=== PATIENT | male | born 1995 | race African-American/Black ===

== ENCOUNTER 2017-05-11 19:22 | Emergency (ER) | payer MEDICAID ==
[~2017-05-11] VITALS: Ht 170.2 cm; Wt 65.3 kg
[2017-05-11 19:32] VITALS: BP 137/73
[2017-05-12] MEDS ORDERED: CYCLOBENZAPRINE HCL 10 MG TAB PO ONE (02:30)
[2017-05-12] MEDS ORDERED: ACETAMINOPHEN 500 MG TAB PO ONE (02:30)
== END 2017-05-12 02:43 | disposition home or self-care (01) ==
LOC: ER 19:22
DX: S29.012A Strain of muscle and tendon of back wall of thorax, initial encounter (principal); M79.1 Myalgia; X58.XXXA Exposure to other specified factors, initial encounter; Y93.89 Activity, other specified; Y92.89 Other specified places as the place of occurrence of the external cause; Y99.8 Other external cause status

== ENCOUNTER 2017-07-02 16:06 | Emergency (ER) | payer MEDICAID ==
[~2017-07-02] VITALS: Ht 180.3 cm; Wt 65.1 kg
[2017-07-02 16:25] VITALS: BP 132/86
[2017-07-02 17:08] LABS: Basophils # (auto) 0 uL; Basophils % (auto) 0.4 % (0.0-2.0); Eosinophils # (auto) 0.2 uL; Eosinophils % (auto) 1.4 % (0.0-7.0); Hematocrit 43.3 % (41.0-53.0); Hemoglobin 14.6 g/dL (13.5-17.5); Lymphocytes # (auto) 1.6 uL; Lymphocytes % (auto) 14.6 % (10.0-50.0); Mean Corpuscular Hemoglobin 32.3 pg (28.0-32.0); Mean Corpuscular Hgb Conc. 33.8 g/dL (32.0-36.0); Mean Corpuscular Volume 95.8 fL (80.0-100.0); Monocytes # (auto) 1.2 uL; Neutrophils # (auto) 8.2 uL; Neutrophils % (auto) 72.6 % (37.0-80.0); Platelet Count (auto) 177 10^3/uL (140-450); Red Blood Cells 4.52 10^6/uL (4.5-5.90); Red Cell Distribution Width 12.8 % (11.8-14.3); White Blood Cell 11.2 10^3/uL (4.4-10.8)
[2017-07-02 17:25] LABS: Albumin 3.8 g/dL (3.4-5.0); Anion Gap 8 (5-15); BUN/Creatinine Ratio 17.4; Blood Urea Nitrogen 16 mg/dL (7-18); Calcium 8.4 mg/dL (8.5-10.1); Carbon Dioxide 25 mmol/L (21-32); Chloride 108 mmol/L (98-107); GFR African American 131 mL/min; GFR Non-African American 108 mL/min; Glucose 92 mg/dL (74-106); Sodium 141 mmol/L (136-145)
[2017-07-02 17:30] LABS: Alanine Aminotransferase 32 U/L (16-61); Alkaline Phosphatase 105 U/L (45-117); Aspartate Aminotransferase 25 U/L (15-37); Bilirubin, Total 0.5 mg/dL (0.2-1.0); Total Protein 7.2 g/dL (6.4-8.2)
[2017-07-02 18:56] LABS: Alcohol, Urine < 3.0 mg/dL (0-5); Amphetamine Screen, Urine NEGATIVE (NEGATIVE); Barbiturate Scree,Urine NEGATIVE (NEGATIVE); Benzodiazephine Screen, Urine NEGATIVE (NEGATIVE); Cannabinoid Screen, Urine NEGATIVE (NEGATIVE); Cocaine Screen, Urine NEGATIVE (NEGATIVE); Opiate Scree,Urine NEGATIVE (NEGATIVE); Phencyclidine Screen, Urine NEGATIVE (NEGATIVE)
[2017-07-02 18:57] LABS: Urine Bacteria NONE SEEN /hpf (None Seen); Urine Blood Negative /uL (Negative); Urine WBC 1 /hpf (0 - 3)
== END 2017-07-02 20:14 | disposition left against medical advice (07) ==
LOC: ER 16:06
DX: R07.89 Other chest pain (principal); Z53.21 Procedure and treatment not carried out due to patient leaving prior to being seen by health care provider
CPT/HCPCS: 36415; 71046; 80053; 80307; 81001; 83735; 84484; 85025; 93005

== ENCOUNTER 2023-02-01 21:10 | Emergency (ER) | payer MEDICAID ==
[~2023-02-01] VITALS: Ht 180.3 cm; Wt 77.5 kg
[2023-02-01 22:07] VITALS: BP 124/84; PULSE 91; RESP 16; O2SAT 96
[2023-02-02] MEDS ORDERED: HYDROcodone-ACET 5/325MG TAB PO ONE (05:30)
[2023-02-02] MEDS ORDERED: CYCL-611 PO ×3 (07:06→07:43)
[2023-02-02] MEDS ORDERED: IBUP-1454 PO ×3 (07:06→07:43)
== END 2023-02-02 07:38 | disposition home or self-care (01) ==
LOC: ER 21:10
DX: S33.5XXA Sprain of ligaments of lumbar spine, initial encounter (principal); S13.9XXA Sprain of joints and ligaments of unspecified parts of neck, initial encounter; S23.3XXA Sprain of ligaments of thoracic spine, initial encounter; S20.211A Contusion of right front wall of thorax, initial encounter; X58.XXXA Exposure to other specified factors, initial encounter; Y93.89 Activity, other specified; Y92.89 Other specified places as the place of occurrence of the external cause; Y99.8 Other external cause status
CPT/HCPCS: 72040; 72070; 72100

== ENCOUNTER 2023-02-04 13:21 | Emergency (ER) | payer MEDICAID ==
[~2023-02-04] VITALS: Ht 180.3 cm; Wt 73.4 kg
[~2023-02-04 13:21] MED LIST: CYCL-611 PO; IBUP-1454 PO
[2023-02-04 18:24] VITALS: BP 119/73; PULSE 104; RESP 18; O2SAT 97
[2023-02-04] MEDS ORDERED: NAP500T PO (19:10)
[2023-02-04] MEDS ORDERED: KETOROLAC TROMETH 60MG/2ML VIAL IM ONE (19:15)
== END 2023-02-04 19:10 | disposition home or self-care (01) ==
LOC: ER 13:21
DX: S16.1XXA Strain of muscle, fascia and tendon at neck level, initial encounter (principal); S39.012A Strain of muscle, fascia and tendon of lower back, initial encounter; F17.210 Nicotine dependence, cigarettes, uncomplicated; Z79.1 Long term (current) use of non-steroidal anti-inflammatories (NSAID); Z79.899 Other long term (current) drug therapy; V89.2XXA Person injured in unspecified motor-vehicle accident, traffic, initial encounter; Y93.89 Activity, other specified; Y92.89 Other specified places as the place of occurrence of the external cause; Y99.8 Other external cause status
CPT/HCPCS: 96372; 99283; J1885

== ENCOUNTER 2023-05-30 11:38 | Emergency (ER) | payer SELFPAY ==
[~2023-05-30] VITALS: Ht 177.8 cm; Wt 72.7 kg
[~2023-05-30 11:38] MED LIST changes: +NAP500T PO
[2023-05-30] MEDS: IBUPROFEN 800 MG TAB PO ONE (12:42)
[2023-05-30] MEDS ORDERED: IBUP-1456 PO (12:48)
[2023-05-30 12:54] VITALS: BP 123/72; PULSE 109; RESP 18; O2SAT 98
[2023-05-30 13:13] VITALS: TEMP 98
== END 2023-05-30 13:30 | disposition home or self-care (01) ==
LOC: ER 11:38
DX: S62.397A Other fracture of fifth metacarpal bone, left hand, initial encounter for closed fracture (principal); F17.210 Nicotine dependence, cigarettes, uncomplicated; Z79.899 Other long term (current) drug therapy; X58.XXXA Exposure to other specified factors, initial encounter; Y93.89 Activity, other specified; Y92.89 Other specified places as the place of occurrence of the external cause; Y99.8 Other external cause status
CPT/HCPCS: 29125; 73130